=== PATIENT | male | born 1995 | race Caucasian/White ===

== ENCOUNTER 2025-07-15 10:16 | Emergency (ER) | payer OTHER, SELFPAY ==
--- NOTE | ~2025-07-15 | XR_ITS ---
EXAMINATION: X-ray right wrist X-ray right hand CLINICAL INFORMATION: Tree fell on hand COMPARISON: None TECHNIQUE: Wrist 4 views. Hand 3 views. FINDINGS: Wrist: No visible fracture or dislocation. No significant joint space narrowing or marginal osteophytes. Ulnar negative variance. Bony alignment is anatomic. No osseous erosion. No abnormal soft tissue calcification. Mild soft tissue swelling. Hand: No visible acute fracture or dislocation. Alignment is anatomic. No significant joint space narrowing or marginal osteophytes. No osseous erosion. No abnormal soft tissue calcification. XR/XR wrist RT min 3V IMPRESSION: No radiographic evidence of acute fracture or dislocation. Follow-up imaging as clinically indicated. Electronically signed by: Salvatore Mckenzie MD 07/15/2025 11:28 AM [facility]
--- NOTE | ~2025-07-15 | XR_ITS ---
EXAMINATION: X-ray right wrist X-ray right hand CLINICAL INFORMATION: Tree fell on hand COMPARISON: None TECHNIQUE: Wrist 4 views. Hand 3 views. FINDINGS: Wrist: No visible fracture or dislocation. No significant joint space narrowing or marginal osteophytes. Ulnar negative variance. Bony alignment is anatomic. No osseous erosion. No abnormal soft tissue calcification. Mild soft tissue swelling. Hand: No visible acute fracture or dislocation. Alignment is anatomic. No significant joint space narrowing or marginal osteophytes. No osseous erosion. No abnormal soft tissue calcification. XR/XR hand RT 2V IMPRESSION: No radiographic evidence of acute fracture or dislocation. Follow-up imaging as clinically indicated. Electronically signed by: Salvatore Mckenzie MD 07/15/2025 11:28 AM [facility]
--- NOTE | ~2025-07-15 | XR_ITS ---
EXAMINATION: XR CHEST CLINICAL INFORMATION: Chest pain COMPARISON: February 23, 2019 TECHNIQUE: AP view of the chest was obtained. FINDINGS: No hyperinflation. No consolidation pleural effusion or pneumothorax. Cardiomediastinal silhouette size is normal. Osseous structures are intact. XR/XR chest 1V IMPRESSION: No acute airspace disease. Negative x-ray. Electronically signed by: Vik Villatoro MD 07/15/2025 11:57 AM [facility] [place]
[2025-07-15 10:21] VITALS: BP 116/65; PULSE 88; RESP 18; TEMP 36.6; O2SAT 97; BMI 30.4
--- NOTE | 2025-07-15 10:23 | ECG_ITS ---
Test Reason : CP Blood Pressure : */* mmHG Vent. Rate : 79 BPM Atrial Rate : 79 BPM P-R Int : 140 ms QRS Dur : 80 ms QT Int : 362 ms P-R-T Axes : 14 67 59 degrees QTcB Int : 415 ms Normal sinus rhythm Normal ECG When compared with ECG of 23-Feb-2019 08:59, No significant change was found Referred By: Jaziel Lee Electronically Signed By: BLAISE GARZON
--- NOTE | 2025-07-15 10:26 | ED.GENADULT ---
HPI - General Adult General Chief complaint: General Medical Stated complaint: Cp, R wrist sprain Time Seen by Provider: 07/15/25 11:01 Source: patient and family Mode of arrival: ambulatory Limitations: no limitations History of Present Illness ED Provider: DR. Estes HPI narrative: this is a 29-year-old male came in for evaluation of epigastric pain radiates to the anterior chest since last night pain has been constant, no radiation only localized to the lower chest/ epigastric area feels like bloating and fullness in the epigastric area, no other associated symptoms, no clear aggravating factor, no clear relieving factor, no alcohol use. Patient also came for evaluation of a right wrist pain for a week after he dropped a a tree branch on his right wrist, patient is a [id number]. Related Data Allergies Allergy/AdvReac Type Severity Reaction Status Date / Time famotidine (From PEPCID) Allergy Unknown ANAPHYLAXIS Verified 07/15/25 10:22 Review of Systems Review of Systems: All other systems are reviewed and are negative Constitutional: Reports as per HPI and Reports no additional constitutional complaints Eyes: Reports as per HPI and Reports no additional eye complaints Reports system reviewed and no additional complaints, except as documented Cardiovascular: Reports as per HPI and Reports no additional cardiovascular complaints Respiratory: Reports as per HPI and Reports no additional respiratory complaints Gastrointestinal: Reports as per HPI and Reports no additional gastrointestinal complaints Genitourinary: Reports no additional female genitourinary complaints Musculoskeletal: Reports no additional musculoskeletal complaints Skin/Breast: Reports system reviewed and no additional complaints, except as docu Psychiatric: Reports no additional psychiatric complaints Endocrine: Reports no additional endocrine complaints Hematologic/Lymphatic: Reports no additional hematologic/lymphatic complaints Allergic/Immunologic: Reports no additional allergic/immunologic complaints Reports system reviewed and no additional complaints, except as documented and Reports Abnormal speech present. [facility] Social History Social History Advance Directives: No Advance Directives Information Provided: Yes Physical Exam ED Vital Signs: Vital Signs - 24 hr 07/15/25 10:21 07/15/25 13:16 07/15/25 14:19 Temperature 98 F 98 F 98 F Pulse Rate 88 80 80 Respiratory Rate 18 16 16 Blood Pressure 116/65 103/70 103/70 Pulse Oximetry 97 97 97 Oxygen Delivery Method Room Air Room Air Room Air BMI result Body Mass Index 30.4 Vital signs have been reviewed and appear to be correct. Blood pressure elevated. Heart rate normal. Respiratory rate normal. Temperature normal. Oxygen saturation normal. Appearance: Alert. Oriented X3. No acute distress. Head: Normal external exam. Normocephalic. Atraumatic. No [place] signs noted. No raccoon eyes noted Eyes: PERRLA. EOMI. Conjunctiva and sclera normal. Eyelids normal. ENT: TM's Normal. Pharynx normal. Uvula midline. Moist mucous membranes. No trismus noted. No drooling noted. No muffled voice noted. Neck: Normal inspection. Neck supple. FROM. No adenopathy. Thyroid Normal. No meningeal signs. No neck mass noted. CVS: Normal heart rate and rhythm. Heart sound normal. No murmurs noted. Pulses normal throughout. Respiratory: No respiratory distress. Painless inspiration. Breath sounds normal. No wheezes/rales/rhonchi noted. Chest nontender. No accessory muscle usage noted or decreased air movement noted. Abdomen: Soft and nontender. Bowel sounds normal in all 4 quadrants. No distention noted. No organomegaly noted. No visible injury noted. Back: No CVA tenderness. Full range of motion noted. Skin: Skin warm and dry. Normal skin color. Normal skin turgor. No rashes/lesions/lacerations noted. Extremities: No lower extremity edema. Extremities exhibit normal range of motion. Extremities nontender. Neuro: Oriented X 3. Cranial nerve exam: II-XII are grossly intact No motor deficit. No sensory deficit. Reflexes normal. Course Course Course Narrative: RME: 29-year-old male with past medical history of GERD presents to the ED for epigastric abdominal pain and feeling bloating since last night. Patient denies any recent long travel recent surgery pleurisy. Patient denies any leg swelling or calf pain. Patient denies any genitourinary symptoms. Patient has secondary complaint right wrist pain for 1 week. Patient states tree fell on his right wrist. Labs ordered Reevaluation(s) Reevaluation #1: Acid reflux gastritis feels better with Carafate and Maalox patient to continue taking PPI and follow-up with GI. Normal right hand / wrist x-ray with no fracture ibuprofen / Tylenol if needed for pain. Time: 14:00 Medications Administered Discontinued Medications Generic Name Dose Route Start Last Admin Trade Name Freq PRN Reason Stop Dose Admin Al Hydroxide/Mg Hydroxide 30 ml 07/15/25 11:15 07/15/25 11:46 Magnesium Hydrox/Alum Hydrox 30 Ml Oral.Susp PO 07/15/25 11:16 30 ml ONCE ONE Administration Sucralfate 1 gm 07/15/25 11:15 07/15/25 11:46 Sucralfate Oral Suspension 1 Gm/10 Ml Oral.Susp PO 07/15/25 11:16 1 gm ONCE ONE Administration Medical Decision Making Differential Diagnosis Differential Diagnoses: The differential diagnosis associated with the presentation includes ( ACS, pulmonary embolism, pneumonia, pneumothorax, pleural effusion, gastritis, acid reflux, myofascial chest pain, electrolyte derangement, severe anemia.) Admission/Observation Consideration of admission/observation: Escalation of care including admission/observation considered Lab Data MDM Lab Attestation statement: I reviewed the patient's lab results. 07/15/25 10:34 07/15/25 10:34 Labs: Lab Results 07/15/25 07/15/25 07/15/25 Range/Units 10:34 12:17 13:14 WBC 7.0 (4.8-10.8) X10*3/uL RBC 5.57 (4.60-5.80) X10*6/uL Hgb 16.6 (14.0-18.0) g/dl Hct 47.4 (42.0-52.0) % MCV 85.1 (80.0-98.0) fL MCH 29.8 (27.0-33.0) pg MCHC 35.0 (31.0-36.0) g/dl RDW 13.1 (11.0-16.0) % Plt Count 257 (160-400) X10*3/uL MPV 9.9 (9.4-12.4) fL Immature Gran % (Auto) 0.4 (0.0-0.4) % Neut % (Auto) 58.6 (45-73) % Lymph % (Auto) 32.6 (20-40) % [place] % (Auto) 5.4 (2-11) % Eos % (Auto) 2.6 (0-4) % Baso % (Auto) 0.4 (0-2) % Lymph # (Auto) 2.3 (1.2-4.9) X10*3/uL [place] # (Auto) 0.4 (0.1-1.2) X10*3/uL Eos # (Auto) 0.2 (0.0-0.4) X10*3/uL Baso # (Auto) 0.0 (0.0-0.2) X10*3/uL Abs Immat Gran (auto) 0.03 (0.00-0.03) X10*3/uL Absolute Neuts (auto) 4.1 (2.0-8.3) x10*3/uL Absolute Nucleated RBC 0.000 (0.0-0.012) X10*3/uL Nucleated RBC % (auto) 0.0 (0.0-0.2) /100WBC PT 11.9 (11.2-13.5) SEC INR 1.0 (0.9-1.1) APTT 29.8 (26.7-34.1) SEC D-Dimer High Sensitivty 175 NG/ML Sodium 141 (135-145) mmol/L Potassium 3.5 (3.3-5.1) mmol/L Chloride 111 H (96-108) mmol/L Carbon Dioxide 21 L (22-29) mmol/L Anion Gap 13 (12-20) BUN 16 (9-16) mg/dL Creatinine 0.97 (0.5-1.4) mg/dL Estim Creat Clear Calc 120.6 Estimated GFR > 60 Random Glucose 99 (60-115) mg/dL Calcium 9.4 (8.4-10.2) mg/dL Total Bilirubin 0.4 (0.0-1.0) mg/dL AST 19 (5-37) U/L ALT 35 (0-40) U/L Alkaline Phosphatase 79 (39-117) U/L Troponin I High Sens < 2.7 < 2.7 (<3.5-35.0) ng/L Total Protein 6.8 (6.5-8.0) g/dL Albumin 4.2 (3.5-5.0) g/dL Lipase 29 (8-78) U/L Urine Color Yellow Urine Appearance Clear Urine pH 5.5 (5.0-9.0) Ur Specific [place] 1.025 (1.005-1.025) Urine Protein Negative (Neg-Trace) mg/dL Urine Glucose (UA) Negative (Negative) mg/dL Urine Ketones Trace (Negative) mg/dL Urine Blood Negative (Negative) Urine Nitrite Negative (Negative) Ur Leukocyte Esterase Negative (Negative) Independent Interpretation I performed an independent interpretation of an: EKG ( Normal sinus rhythm at 79 beats per minutes, normal intervals, no ST-T changes, no change from prior EKG.) and Plain X-Ray ( Chest: No acute intrathoracic pathology.) Radiology Impression Discussion of test interpretation with radiology: I have reviewed the radiologist's reading. Discharge Plan Discharge Clinical Impression: Contusion of right wrist, Chest pain due to GERD Patient Disposition: Home, Self-Care Instructions: Chest Pain (ED) Additional Instructions: continue with omeprazole and follow-up with Dr. Brennan Referrals: Glenna Brennan MD [Physician, Gastroenterology] Elinor Richardson MD [Primary Care Provider, Internal Medicine] Stand Alone Forms: Work/School Release Interventions: ED Discharge Assessment Last Done: 07/15/25 14:19 Discharge Date/Time: 07/15/25 14:19 Print Language: Amharic
[2025-07-15 10:39] LABS: MANUAL DIFF FLAG NO
[2025-07-15 10:43] LABS: Hematocrit 47.4 % (42.0-52.0); Hemoglobin 16.6 g/dl (14.0-18.0); Imm Gran Abs Auto 0.03 X10*3/uL (0.00-0.03); Imm Gran Pct Auto 0.4 % (0.0-0.4); Lymphocytes Absolute Auto 2.3 X10*3/uL (1.2-4.9); Mean Corpuscular HGB Conc 35.0 g/dl (31.0-36.0); Mean Corpuscular Hemoglobin 29.8 pg (27.0-33.0); Mean Corpuscular Volume 85.1 fL (80.0-98.0); NRBC Abs Auto 0.000 X10*3/uL (0.0-0.012); NRBC Pct Auto 0.0 /100WBC (0.0-0.2); Platelet Count 257 X10*3/uL (160-400); Red Blood Count 5.57 X10*6/uL (4.60-5.80); White Blood Count 7.0 X10*3/uL (4.8-10.8)
[2025-07-15 10:57] LABS: Alanine Aminotransferase 35 U/L (0-40); Albumin Level 4.2 g/dL (3.5-5.0); Alkaline Phosphatase 79 U/L (39-117); Anion Gap 13 (12-20); Aspartate Amino Transferase 19 U/L (5-37); Blood Urea Nitrogen 16 mg/dL (9-16); Calcium 9.4 mg/dL (8.4-10.2); Carbon Dioxide 21 mmol/L (22-29); Chloride 111 mmol/L (96-108); Creatinine Clr Calc Pharmacy 120.6; Estimated Glomerular Filt Rate > 60; Lipase 29 U/L (8-78); Potassium 3.5 mmol/L (3.3-5.1); Sodium 141 mmol/L (135-145); Total Protein 6.8 g/dL (6.5-8.0)
[2025-07-15 10:59] LABS: INTERNATIONAL NORM RATIO 1.0 (0.9-1.1); Prothrombin Time 11.9 SEC (11.2-13.5)
[2025-07-15 11:02] LABS: Partial Thromboplastin Time 29.8 SEC (26.7-34.1)
[2025-07-15 11:03] LABS: Troponin-I High Sensitivity < 2.7 ng/L (<3.5-35.0)
[2025-07-15 11:34] LABS: D Dimer High Sensitivity 175 NG/ML
[2025-07-15] MEDS: Sucralfate Oral Suspension 1 GM/10 ML ORAL.SUSP PO (11:46)
[2025-07-15] MEDS: Magnesium Hydrox/Alum Hydrox 30 ML ORAL.SUSP PO (11:46)
[2025-07-15 12:27] LABS: Appearance Urine Clear; Glucose Urine UA Negative (Negative); PH 5.5 (5.0-9.0); Specific Gravity - Urine 1.025 (1.005-1.025)
[2025-07-15 13:16] VITALS: BP 103/70; PULSE 80; RESP 16; TEMP 36.6; O2SAT 97
[2025-07-15 13:48] LABS: Troponin-I High Sensitivity < 2.7 ng/L (<3.5-35.0)
[2025-07-15 14:19] VITALS: BP 103/70; PULSE 80; RESP 16; TEMP 36.6; O2SAT 97
== END 2025-07-15 14:19 | disposition home or self-care (01) ==
PROVIDERS: Physician Assistant; Emergency Provider Emergency Medicine; PCP Internal Medicine
DX: S60.211A Contusion of right wrist, initial encounter (principal); W20.8XXA Other cause of strike by thrown, projected or falling object, initial encounter; Y93.L9 Activity, other outdoor activity; Y92.9 Unspecified place or not applicable; K21.9 Gastro-esophageal reflux disease without esophagitis; R07.9 Chest pain, unspecified; R10.13 Epigastric pain
CPT/HCPCS: 36415; 71045; 73110; 73120; 80053; 81003; 83690; 84484; 85025; 85379; 85610; 85730; 93005; 99283; 99284

== ENCOUNTER → 2025-07-15 10:23 | Outpatient (BNV) | payer OTHER, SELFPAY | PROVIDERS: Emergency Provider Emergency Medicine; PCP Internal Medicine; Visit Provider Internal Medicine | DX: R07.9 Chest pain, unspecified (principal) | CPT/HCPCS: 93010 ==

== ENCOUNTER → 2025-07-15 10:24 | Outpatient (BNV) | payer OTHER, SELFPAY | PROVIDERS: Emergency Provider Emergency Medicine; PCP Internal Medicine; Visit Provider Radiology Diagnostic Ultrasound | DX: R07.9 Chest pain, unspecified (principal); Z04.3 Encounter for examination and observation following other accident | CPT/HCPCS: 71045; 73110; 73120 ==